=== PATIENT | female | born 1940 | race Caucasian/White ===

== ENCOUNTER 2016-10-17 06:38 | Emergency (ER) | payer OTHER ==
[~2016-10-17] VITALS: Ht 152.4 cm; Wt 59.8 kg
[~2016-10-17 06:38] MED LIST: ADVA100A INH; ALBU6.7H INH; ASPI81 PO; AUGM875T PO; CALCCHW25 PO; CIME200 PO; FOSA5TAB PO; LORTA5 PO; LOVA20TA OR; NORV2.5T11 PO; PRED20 PO; TAB-TAB PO
[2016-10-17 06:46] VITALS: BP 138/60; PULSE 96; RESP 18; TEMP 98.5; O2SAT 96
--- NOTE | 2016-10-17 07:07 | PD ---
HPI Chief Complaint: GI Complaint Time Seen by Provider: 07:07 Travel History International Travel<30 days: No Contact w/Intl Traveler<30days: No Traveled to known affect area: No History of Present Illness HPI 76-year-old female came to the emergency room with history of vomiting pretty much intractable since last night. Patient relates it to taking the first dose of Augmentin last night before going to bed for her bronchitis. This was prescribed to her by her primary care. Patient says she has taken amoxicillin in the past and never had this kind of reaction to it. Her is here with her and patient seems extremely anxious. She says she was unable to keep anything down over the night including little sips of water. Her last vomit was at 4:30 this morning. No blood in it. It is dark yellow in color as per her. Vital signs were relatively stable. PFSH Past Medical History Narrative Medical List of her past medical, surgical, social and family history was reviewed from the nursing note. Hx Anticoagulant Therapy: Yes (81 MG ASA) Cardiovascular Problems: Yes (HTN) High Cholesterol: Yes COPD: Yes Diminished Hearing: No Hypertension: Yes Respiratory: Yes (COPD) Thyroid Disease: Yes (HYPO) ?: Not Past Surgical History Genitourinary Surgery: Yes (HYSTERECTOMY) Hysterectomy: Yes Social History Alcohol Use: Yes (SELDOM) Tobacco Use: No Substance Use: No Allergies-Medications (Allergen,Severity, Reaction): Coded Allergies: Sulfa (Verified Allergy, Severe, Rash, 10/17/16) Comments List of her allergies reviewed from the nursing note. Reported Meds & Prescriptions Reported Meds & Active Scripts Active Zofran Odt (Ondansetron Odt) 4 Mg Tab 4 Mg SL Q6HR PRN Reported Fosamax (Alendronate Sodium) 70 Mg Tab 70 Mg PO Q7D Omeprazole 20 Mg Tab 20 Mg PO DAILY Albuterol Neb (Albuterol Sulfate) 1.25 Mg/3 Ml Neb 1.25 Mg NEB Q4HR NEB PRN Proventil Hfa 6.7 GM Inh (Albuterol Sulfate) 90 Mcg/Act Aer 1 Puff INH Q4H PRN Lisinopril 20 Mg Tab 20 Mg PO DAILY Advair Diskus Inh (Fluticasone-Salmeterol Inh) 250-50 Mcg/Blist Aer 1 Puff INH BID Rinse mouth after use. Aspirin 81 Mg Tabdr 81 Mg PO DAILY Multiple Vitamin 1 Tab 1 Tab PO DAILY Calcium 600 with Vitamin D (Calcium Carbonate-Cholecalciferol) 600-400 mg-Unit Tab 1 Tab PO BID Narrative Medication List of her home medications reviewed from the nursing note. Review of Systems Except as stated in HPI: all other systems reviewed are Neg Physical Exam Narrative GENERAL: Awake, alert, elderly, anxious, mild distress SKIN: Focused skin assessment warm/dry. HEAD: Atraumatic. Normocephalic. EYES: Pupils equal and round. No scleral icterus. No injection or drainage. ENT: No nasal bleeding or discharge. Mucous membranes pink and moist. NECK: Trachea midline. No JVD. CARDIOVASCULAR: Regular rate and rhythm. No murmur appreciated. RESPIRATORY: No accessory muscle use. Clear to auscultation. Breath sounds equal bilaterally. GASTROINTESTINAL: Abdomen soft, non-tender, nondistended. Hepatic and splenic margins not palpable. MUSCULOSKELETAL: No obvious deformities. No clubbing. No cyanosis. No edema. NEUROLOGICAL: Awake and alert. No obvious cranial nerve deficits. Motor grossly within normal limits. Normal speech. PSYCHIATRIC: Appropriate mood and affect; insight and judgment normal. Data Data Last Documented VS Vital Signs Date Time Temp Pulse Resp B/P Pulse Ox O2 Delivery O2 Flow Rate FiO2 10/17/16 08:28 85 16 140/59 98 Orders Ondansetron Odt (Zofran Odt) (10/17/16 07:15) Alprazolam (Xanax) (10/17/16 07:15) Electrocardiogram (10/17/16 ) [facility] Medical Decision Making Medical Screen Exam Complete: Yes Emergency Medical Condition: Yes Medical Record Reviewed: Yes Interpretation(s) Twelve-lead EKG was reviewed by me. Normal sinus rhythm, normal axis, nonspecific ST-T wave changes. Heart rate of 89 bpm. Differential Diagnosis Acute gastritis, dehydration, anxiety Narrative Course 7:19 AM I have ordered Zofran ODT for her. The plan is to give her something to drink after half an hour of her taking the medication. Because she seems so anxious I have given her some Xanax as well. 8:15 AM patient seemed much better. She drank a cup full of Gatorade. I will discharge her home. Procedures EKG Prior to Arrival: No Diagnosis Primary Impression: Acute gastritis Qualified Code: K29.00 - Acute gastritis without hemorrhage, unspecified gastritis type Additional Impression: Vomiting Qualified Code: R11.2 - Intractable vomiting with nausea, unspecified vomiting type Referrals: Primary Care Physician 3 days Additional Instructions: Please return to the ER if the condition worsens or any other new concerns. Otherwise follow-up with your primary care on Thursday. Take clear diet for the next 24 hours and if he tolerates well he can proceed to the regular diet. Take the medication as per the prescription direction. Med/Other Pt SpecificInfo: Prescription(s) given Scripts Ondansetron Odt (Zofran Odt)4 Mg Tab4 Mg SL Q6HR PRN (Nausea/Vomiting) #20 TAB Ref 0 Prov:Frida Jolly MD 10/17/16 Disposition: 01 DISCHARGE HOME Condition: Stable Frida Jolly MD Oct 17, 2016 07:07
[2016-10-17] MEDS ORDERED: CALC1TAB87 PO (07:11)
[2016-10-17] MEDS ORDERED: MULTTAB67 PO (07:11)
[2016-10-17] MEDS ORDERED: ALBU6.7H INH (07:11)
[2016-10-17] MEDS ORDERED: FOSA70TA PO (07:11)
[2016-10-17] MEDS ORDERED: ADVA250A INH (07:11)
[2016-10-17] MEDS ORDERED: OMEP20TA PO (07:11)
[2016-10-17] MEDS ORDERED: LISI-515 PO (07:11)
[2016-10-17] MEDS ORDERED: ALBU1.25 NEB (07:11)
[2016-10-17] MEDS ORDERED: ASPI1TAB69 PO (07:11)
[2016-10-17] MEDS ORDERED: ONDANSETRON ODT 4 MG TAB PO ONE (07:15)
[2016-10-17] MEDS ORDERED: ALPRAZolam 0.25 MG TAB PO ONE (07:15)
[2016-10-17] MEDS ORDERED: ZOFR4TAB3 SL (08:17)
[2016-10-17 08:28] VITALS: BP 140/59
--- NOTE | 2016-10-17 13:35 | EKG ---
Date Performed: 10/17/2016 Time Performed: 07:20:28 PTAGE: 76 years EKG: Sinus rhythm Possible inferior infarct - age undetermined Compared to prior tracing no significant change Abnorma l ECG PREVIOUS TRACING : 06/15/2012 04.51 DOCTOR: Nikolai Schneider Interpretating Date/Time 10/17/2016 13:34:48
== END 2016-10-17 08:29 | disposition home or self-care (01) ==
LOC: PHED 06:38
DX: K29.00 Acute gastritis without bleeding (principal); R11.2 Nausea with vomiting, unspecified; R94.31 Abnormal electrocardiogram [ECG] [EKG]; J40 Bronchitis, not specified as acute or chronic; I10 Essential (primary) hypertension; E78.00 Pure hypercholesterolemia, unspecified; J44.9 Chronic obstructive pulmonary disease, unspecified; E03.9 Hypothyroidism, unspecified; Z79.82 Long term (current) use of aspirin
CPT/HCPCS: 93005; 99283

== ENCOUNTER 2017-06-13 04:13 | Emergency (ER) | payer OTHER ==
[~2017-06-13] VITALS: Ht 149.9 cm; Wt 61.0 kg
[~2017-06-13 04:13] MED LIST changes: -ADVA100A INH; +ADVA250A INH; +ALBU1.25 NEB; +ASPI1TAB69 PO; -ASPI81 PO; -AUGM875T PO; +CALC1TAB87 PO; -CALCCHW25 PO; -CIME200 PO; -FOSA5TAB PO; +FOSA70TA PO; +LISI-515 PO; -LORTA5 PO; -LOVA20TA OR; +MULTTAB67 PO; -NORV2.5T11 PO; +OMEP20TA93 PO; -PRED20 PO; -TAB-TAB PO; +ZOFR4TAB3 SL
[2017-06-13 04:15] VITALS: BP 201/150; PULSE 89; RESP 18; TEMP 97.8; O2SAT 95
[2017-06-13 04:45] VITALS: BP 201/150; PULSE 89; RESP 18; TEMP 97.8; O2SAT 95
[2017-06-13] MEDS ORDERED: ONDANSETRON HCL 4 MG/2 ML VIAL IV PUSH ONE (05:30)
[2017-06-13] MEDS ORDERED: MORPHINE SULFATE 4 MG/ML INJ IV PUSH ONE (05:30)
[2017-06-13] MEDS ORDERED: KETOROLAC TROMETHAMINE 30 MG/ML (IVP) VIAL IV PUSH ONE (05:30)
[2017-06-13] MEDS ORDERED: SODIUM CHLORIDE 0.9% FLUSH 10 ML FLUSH IVF PRN (05:30)
[2017-06-13] MEDS ORDERED: SODIUM CHLORID 0.9% 500 ML INJ 500 ML IV ONE (05:30)
--- NOTE | 2017-06-13 05:32 | PD ---
HPI Chief Complaint: Musculoskeletal Complaint Time Seen by Provider: 05:28 Travel History International Travel<30 days: No Contact w/Intl Traveler<30days: No Traveled to known affect area: No History of Present Illness HPI 76-year-old female presents to the emergency department complaining of intractable back pain since yesterday. Pain has progressively worsened. Patient had associated nausea without vomiting. No reported hematuria or dysuria. Patient does have prior history of kidney stones with similar type pain but does not recall it being in her upper back around her waist. Patient denies injury or fall. No referred lower extremity numbness tingling or weakness. No bladder or bowel dysfunction. No saddle anesthesia. Patient rates her pain as 10 over 10 in intensity. Patient is unable to identify exacerbating or alleviating factors. Patient denies abdominal pain or chest pain or shortness of breath. Patient also reports that she is very concerned that her pain may be related to statin use as she has had severe back pain associated with stat use for dyslipidemia and the past. Patient denies any lower extremity muscle pain or upper extremity muscle pain. Patient denies any injury. Patient denies any fever or chills. Patient denies any chest pain or shortness of breath. Patient rates pain 10 over 10 in intensity. PFSH Past Medical History Narrative Medical Hypertension dyslipidemia COPD kidney stones hypothyroidism partial hysterectomy no tobacco use nursing notes reviewed Hx Anticoagulant Therapy: Yes (81 MG ASA) Cardiovascular Problems: Yes (HTN) High Cholesterol: Yes COPD: Yes Diminished Hearing: No Hypertension: Yes Respiratory: Yes (COPD) Thyroid Disease: Yes (HYPO) ?: Not Past Surgical History Genitourinary Surgery: Yes (HYSTERECTOMY) Hysterectomy: Yes (Partial ) Social History Alcohol Use: Yes (OCC) Tobacco Use: No (FORMER) Substance Use: No Allergies-Medications (Allergen,Severity, Reaction): Coded Allergies: Sulfa (Sulfonamide Antibiotics) (Unverified Allergy, Severe, Rash, 06/13/17 ) Reported Meds & Prescriptions Reported Meds & Active Scripts Active Zofran Odt (Ondansetron Odt) 4 Mg Tab 4 Mg SL Q6HR PRN Reported Fosamax (Alendronate Sodium) 70 Mg Tab 70 Mg PO Q7D Omeprazole 20 Mg Tab 20 Mg PO DAILY Albuterol Neb (Albuterol Sulfate) 1.25 Mg/3 Ml Neb 1.25 Mg NEB Q4HR NEB PRN Proventil Hfa 6.7 GM Inh (Albuterol Sulfate) 90 Mcg/Act Aer 1 Puff INH Q4H PRN Lisinopril 20 Mg Tab 20 Mg PO DAILY Advair Diskus Inh (Fluticasone-Salmeterol Inh) 250-50 Mcg/Blist Aer 1 Puff INH BID Rinse mouth after use. Multiple Vitamin 1 Tab 1 Tab PO DAILY Calcium 600 with Vitamin D (Calcium Carbonate-Cholecalciferol) 600-400 mg-Unit Tab 1 Tab PO BID Review of Systems Except as stated in HPI: all other systems reviewed are Neg General / Constitutional: No: Fever, Chills HENT: No: Congestion Cardiovascular: No: Chest Pain or Discomfort Respiratory: No: Shortness of Breath Gastrointestinal: No: Nausea, Vomiting, Abdominal Pain Genitourinary: Positive: Flank Pain Musculoskeletal: Positive: Myalgias, Arthralgias, Pain (back) Skin: No Rash Neurologic: No: Weakness Psychiatric: No: Anxiety Hematologic/Lymphatic: No: Lymph Node Enlargement Physical Exam Narrative GENERAL: Well-developed well-nourished female pacing about the exam room unable to find position of comfort tearful and complaining of back pain and flank pain SKIN: Warm and dry. HEAD: Normocephalic. EYES: No scleral icterus. No injection or drainage. NECK: Supple, trachea midline. No JVD or lymphadenopathy. CARDIOVASCULAR: Regular rate and rhythm without murmurs, gallops, or rubs. RESPIRATORY: Breath sounds equal bilaterally. No accessory muscle use. GASTROINTESTINAL: Abdomen soft, non-tender, nondistended. MUSCULOSKELETAL: No cyanosis, or edema. BACK: Nontender without obvious deformity. Negative straight leg raising. Sensory exam intact. Motor strength 5 over 5. DTRs 2+ and equal bilateral upper extremity is extremities. No CVA tenderness. Data Data Last Documented VS Vital Signs Date Time Temp Pulse Resp B/P (MAP) Pulse Ox O2 Delivery O2 Flow Rate FiO2 06/13/17 07:11 68 18 128/61 (83) 95 Room Air 06/13/17 04:45 97.8 Orders Orders Complete Blood Count With Diff (06/13/17 05:28) Basic Metabolic Panel (Bmp) (06/13/17 05:28) Urinalysis - C+S If Indicated (06/13/17 05:28) Ct Abd/Pel W/O Iv Contrast (06/13/17 05:28) Ecg Monitoring (06/13/17 05:28) Iv Access Insert/Monitor (06/13/17 05:28) Ketorolac Inj (Toradol Inj) (06/13/17 05:30) Morphine Inj (Morphine Inj) (06/13/17 05:30) Sodium Chloride 0.9% Flush (Ns Flush) (06/13/17 05:30) Ondansetron Inj (Zofran Inj) (06/13/17 05:30) Sodium Chlorid 0.9% 500 Ml Inj (Ns 500 M (06/13/17 05:30) Urine Culture (06/13/17 07:00) Ed Discharge Order (06/13/17 07:32) Cephalexin (Keflex) (06/13/17 07:45) Labs Laboratory Tests Test 06/13/17 05:45 06/13/17 07:00 White Blood Count 9.1 TH/MM3 Red Blood Count 4.75 MIL/MM3 Hemoglobin 14.0 GM/DL Hematocrit 42.7 % Mean Corpuscular Volume 89.8 FL Mean Corpuscular Hemoglobin 29.5 PG Mean Corpuscular Hemoglobin Concent 32.9 % Red Cell Distribution Width 11.3 % Platelet Count 273 TH/MM3 Mean Platelet Volume 7.5 FL Neutrophils (%) (Auto) 57.4 % Lymphocytes (%) (Auto) 29.6 % Monocytes (%) (Auto) 9.3 % Eosinophils (%) (Auto) 3.3 % Basophils (%) (Auto) 0.4 % Neutrophils # (Auto) 5.2 TH/MM3 Lymphocytes # (Auto) 2.7 TH/MM3 Monocytes # (Auto) 0.9 TH/MM3 Eosinophils # (Auto) 0.3 TH/MM3 Basophils # (Auto) 0.0 TH/MM3 CBC Comment DIFF FINAL Differential Comment Blood Urea Nitrogen 18 MG/DL Creatinine 0.88 MG/DL Random Glucose 101 MG/DL Calcium Level 8.9 MG/DL Sodium Level 139 MEQ/L Potassium Level 4.0 MEQ/L Chloride Level 106 MEQ/L Carbon Dioxide Level 26.2 MEQ/L Anion Gap 7 MEQ/L Estimat Glomerular Filtration Rate 63 ML/MIN Urine Collection Type CLEAN CATCH Urine Color YELLOW Urine Turbidity CLEAR Urine pH 6.0 Urine Specific [place] 1.015 Urine Protein NEG mg/dL Urine Glucose (UA) NEG mg/dL Urine Ketones NEG mg/dL Urine Occult Blood TRACE Urine Nitrite NEG Urine Bilirubin NEG Urine Leukocyte Esterase MOD Urine RBC 0-3 /hpf Urine WBC 9-14 /hpf Urine Squamous Epithelial Cells 0-5 /hpf Urine Bacteria OCC /hpf Microscopic Urinalysis Comment CULTURE INDICATED Urine Collection Time 07:00 [facility] Medical Decision Making Medical Screen Exam Complete: Yes Emergency Medical Condition: Yes Medical Record Reviewed: Yes Interpretation(s) Urinalysis positive leukocyte Estrace positive white blood cells positive bacteria; culture indicated Last Impressions Abdomen/Pelvis CT 06/13/17527 Signed Impressions: Service Date/Time: Thursday, June 13, 2017 05:59 - CONCLUSION: 1. No acute abnormality is identified to explain the clinical symptoms. There are 3 nonobstructing right and one nonobstructing left renal stone measuring up to 7 mm. 2. Nonacute findings include cholelithiasis, moderate atherosclerotic disease, and sigmoid diverticulosis. Zachary Gray MD CBC & BMP Diagram 06/13/17 05:45 Calcium Level 8.9 Vital Signs Date Time Temp Pulse Resp B/P (MAP) Pulse Ox O2 Delivery O2 Flow Rate FiO2 06/13/17 07:11 68 18 128/61 (83) 95 Room Air 06/13/17 06:47 16 06/13/17 06:31 72 16 141/57 (85) 93 Room Air 06/13/17 05:52 16 06/13/17 05:50 92 18 176/78 (110) 97 Room Air 06/13/17 04:45 18 06/13/17 04:45 97.8 89 18 201/150 (167) 95 06/13/17 04:15 97.8 89 18 201/150 (167) 95 Differential Diagnosis Renal colic, sciatica, abdominal aortic aneurysm, pyelonephritis, shingles, statin-induced myopathy Narrative Course IV access obtained specimens collected and sent for resulting CT imaging ordered along with morphine sulfate Zofran Toradol and IV fluids Patient markedly improved at 6:50 AM discomfort has decreased from 10 over 10 in intensity to 1-2/10 in intensity Lab values grossly within normal limits and CT abdomen and pelvis reveals bilateral kidney stones without evidence of hydronephrosis or hydroureter also no evidence of abdominal aortic aneurysm free air or free fluid Patient informed of urinalysis results and patient given first dose of oral antibiotic in the emergency department; patient remains since asymptomatic with discomfort at times one over 10 in intensity. Patient stable for outpatient management and follow-up with her primary care provider Diagnosis Primary Impression: Back pain Additional Impressions: UTI (urinary tract infection) Bilateral nephrolithiasis Referrals: Primary Care Physician call for appointment Patient Instructions: Narcotic given in the ED, General Instructions Additional Instructions: Increase fluid hydration Discontinue use of your statin medication Follow-up with her primary care provider Take medication as prescribed as needed for pain Return to the emergency department for a concerns or change in condition Complete course of antibiotic as prescribed Med/Other Pt SpecificInfo: Prescription(s) given Scripts Oxycodone-Acetaminophen (Percocet) 5-325 mg Tab 1 TAB PO Q6H Y for PAIN, #7 TAB 0 Refills Prov: Ashlee Levine MD 06/13/17 Cephalexin (Keflex) 500 Mg Capsule 500 MG PO Q6H for Infection for 7 Days, #28 CAP 0 Refills Prov: Ashlee Levine MD 06/13/17 Ondansetron Odt (Zofran Odt) 4 Mg Tab 4 MG SL Q6HR Y for Nausea/Vomiting, #10 TAB 0 Refills Prov: Ashlee Levine MD 06/13/17 Disposition: 01 DISCHARGE HOME Condition: Stable Ashlee Levine MD Jun 13, 2017 05:32
[2017-06-13 05:50] VITALS: BP 176/78; PULSE 92; RESP 18; O2SAT 97
[2017-06-13 06:00] LABS: AUTOMATED NEUTROPHIL # 5.2 TH/MM3 (1.8-7.7); BASOPHIL % 0.4 % (0.0-2.0); EOSINOPHIL # 0.3 TH/MM3 (0-0.4); EOSINOPHIL % 3.3 % (0.0-4.0); HEMATOCRIT 42.7 % (35.0-46.0); HEMO FLAGS DIFF FINAL; LYMPH % 29.6 % (9.0-44.0); LYMPHOCYTE # 2.7 TH/MM3 (1.0-4.8); MEAN CELL VOLUME 89.8 FL (80.0-100.0); MEAN CORPUSCULAR HEMOGLOBIN 29.5 PG (27.0-34.0); MEAN CORPUSCULAR HGB CONC 32.9 % (32.0-36.0); MONO % 9.3 % (0.0-8.0); NEUT % 57.4 % (16.0-70.0); PLATELET COUNT 273 TH/MM3 (150-450); RED BLOOD COUNT 4.75 MIL/MM3 (4.00-5.30); RED CELL DISTRIBUTION WIDTH 11.3 % (11.6-17.2); WHITE BLOOD COUNT 9.1 TH/MM3 (4.0-11.0)
[2017-06-13 06:12] LABS: BICARBONATE 26.2 MEQ/L (21.0-32.0)
[2017-06-13 06:31] VITALS: BP 141/57; PULSE 72; RESP 16; O2SAT 93
--- NOTE | 2017-06-13 06:32 | RADRPT ---
EXAM DATE/TIME: 06/13/2017 05:59 [facility] COMPARISON: CT ABDOMEN & PELVIS W/O CONTRAST, April 27, 2013, 4:49. INDICATIONS : Right flank pain radiating to the left for 2 days. Prior history of renal calculi. ORAL CONTRAST: No oral contrast ingested. RADIATION DOSE: 10.09 CTDIvol (mGy) MEDICAL HISTORY : Renal calculi. Hypertension. Chronic obstructive pulmonary disease. SURGICAL HISTORY : Hysterectomy. ENCOUNTER: Initial ACUITY: 2 days PAIN SCALE: 10/10 LOCATION: Bilateral flank TECHNIQUE: Volumetric scanning of the abdomen and pelvis was performed. Using automated exposure control and ad justment of the mA and/or kV according to patient size, radiation dose was kept as low as reasonably achievable to obtain optimal diagnostic quality images. DICOM format image data is available electro nically for review and comparison. FINDINGS: LOWER LUNGS: The visualized lower lungs are clear. LIVER: Homogeneous density without lesion. There is no dilation of the biliary tree. There are small calci fied stones in the gallbladder. No wall thickening or inflammation is present. SPLEEN: Normal size without lesion. PANCREAS: Within normal limits. KIDNEYS: Normal in size and shape. There is no mass or hydronephrosis. There are 3 nonobstructing right renal stones measuring between 3 mm and 7 mm. A single 3 mm nonobstructing left renal stone is present. No ureteral stones are present and there are no findings to indicate urinary obstruction. ADRENAL GLANDS: Within normal limits. VASCULAR: There is no aortic aneurysm. Moderate atherosclerotic disease is present. BOWEL/MESENTERY: The stomach, small bowel, and colon demonstrate no acute abnormality. There is no free intraperitone al air or fluid. The appendix is normal. There is sigmoid diverticulosis. ABDOMINAL WALL: Within normal limits. RETROPERITONEUM: There is no lymphadenopathy. BLADDER: No wall thickening or mass. REPRODUCTIVE: Uterus is absent. INGUINAL: There is no lymphadenopathy or hernia. MUSCULOSKELETAL: There are mild degenerative changes of the spine. CONCLUSION: 1. No acute abnormality is identified to explain the clinical symptoms. There are 3 nonobstructing ri ght and one nonobstructing left renal stone measuring up to 7 mm. 2. Nonacute findings include cholelithiasis, moderate atherosclerotic disease, and sigmoid diverticul osis. Zachary Gray MD on June 13, 2017 at 6:26 Board Certified Radiologist. This report was verified electronically.
[2017-06-13 07:11] VITALS: BP 128/61; PULSE 68; RESP 18; O2SAT 95
[2017-06-13 07:18] LABS: GLUCOSE,URINE NEG (NEG); KETONE, URINE NEG (NEG); NITRITE,URINE NEG (NEG)
[2017-06-13 07:19] LABS: BLOOD, URINE TRACE (NEG)
[2017-06-13 07:26] LABS: METHOD OF COLLECTION CLEAN CATCH; URINE COLOR YELLOW (YELLW/STRAW)
[2017-06-13 07:27] LABS: BACTERIA, URINE OCC /hpf; COMMENT (UR) CULTURE INDICATED; CULTURE IF INDICATED CULTURE INDICATED; RBC, URINE 0-3 /hpf (0-3); SQUAMOUS EPITHELIAL CELL URINE 0-5 /hpf (0-5)
[2017-06-13] MEDS ORDERED: CEPH-460 PO (07:36)
[2017-06-13] MEDS ORDERED: PERC5TAB12 PO (07:36)
[2017-06-13] MEDS ORDERED: ZOFR4TAB3 SL (07:36)
[2017-06-13] MEDS ORDERED: CEPHALEXIN MONOHYDRATE 500 MG CAP PO ONE (07:45)
== END 2017-06-13 08:01 | disposition home or self-care (01) ==
LOC: PHED 04:13
DX: N20.0 Calculus of kidney (principal); N39.0 Urinary tract infection, site not specified; B96.89 Other specified bacterial agents as the cause of diseases classified elsewhere; I10 Essential (primary) hypertension; Z87.891 Personal history of nicotine dependence
CPT/HCPCS: 74176; 80048; 81001; 85025; 87086; 96361; 96374; 96375; 99285; J1885; J2270; J2405; J7040